=== PATIENT | male | born 1960 | race Caucasian/White ===

== ENCOUNTER 2021-05-16 14:45 | Emergency (ER) | payer SELFPAY ==
[2021-05-16] MEDS ORDERED: Metoprolol Tartrate 50 MG Tab PO ONE (15:38)
[2021-05-16] MEDS ORDERED: MVI, Adult with Vitamin K 10 ML, Thiamine 100 MG, Folic Acid 1 MG, Magnesium Sulfate 3 ... IV SCH ×5 (16:15)
[2021-05-16] MEDS ORDERED: MVI, Adult with Vitamin K 10 ML, Thiamine 100 MG, Folic Acid 1 MG, Magnesium Sulfate 3 ... IV ONE ×5 (17:00)
--- NOTE | 2021-05-16 17:27 | EDM.PDOCBH ---
ED HPI GENERAL MEDICAL PROBLEM - General Chief Complaint: Drug or Alcohol Abuse Stated Complaint: EMA LUNA Time Seen by Provider: 05/16/21 15:10 Source of Information: Reports: Patient, Family History Limitations: Reports: Intoxication - History of Present Illness INITIAL COMMENTS - FREE TEXT/NARRATIVE: 61-year-old male who has a long history of alcoholism, has not had treatment and the family finally convinced him to come in to consider detox. His only medical history is hypertension and peripheral neuropathy of his lower extremities. He has not been taking his medication, he ran out of his blood pressure medication several weeks ago and they would not fill it without him coming in to be seen. He looks thin, very intoxicated, he is hypertensive but not febrile. No nausea or vomiting. Associated Symptoms: Reports: Confusion (Confusion due to the intoxication). Denies: Malaise, Shortness of Breath - Related Data Allergies Allergy/AdvReac Type Severity Reaction Status Date / Time lisinopril Allergy Swelling Verified 05/16/21 15:07 Home Meds: Home Meds Aspirin 81 mg PO DAILY 05/16/21 [History] Clopidogrel [Plavix] 75 mg PO DAILY 05/16/21 [History] Clopidogrel [Plavix] 75 mg PO DAILY #30 tablet 05/16/21 [Rx] Losartan [Cozaar] 50 mg PO DAILY 05/16/21 [History] Losartan [Cozaar] 50 mg PO DAILY #30 tab 05/16/21 [Rx] atorvaSTATin [Lipitor] 80 mg PO DAILY 05/16/21 [History] guaiFENesin [Mucus Relief] 400 mg PO Q4H PRN 05/16/21 [History] Past Medical History Cardiovascular History: Reports: High Cholesterol, Hypertension, [place] Social & Family History - Tobacco Use Tobacco Use Status *Q: Heavy Tobacco User Years of Tobacco use: 35 Packs/Tins Daily: 1 - Recreational Drug Use Recreational Drug Use: No ED ROS GENERAL - Review of Systems Review Of Systems: See Below Constitutional: Reports: Malaise. Denies: Fever, Chills HEENT: Denies: Vision Change Respiratory: Denies: Shortness of Breath GI/Abdominal: Denies: Constipation, Diarrhea, Nausea, Vomiting : Reports: No Symptoms Musculoskeletal: Reports: No Symptoms Neurological: Reports: Paresthesia (Numbness of his lower extremities) ED EXAM, BEHAVIORAL HEALTH - Physical Exam Exam: See Below Exam Limited By: Intoxication General Appearance: Alert, No Apparent Distress, Other (Patient appears very intoxicated, staggering when he walks, very slurred speech) Eye Exam: Bilateral Eye: Normal Inspection (Well hydrated, no jaundice) Head: Atraumatic Neck: Supple, Non-Tender Respiratory/Chest: No Respiratory Distress, Lungs Clear Cardiovascular: Regular Rate, Rhythm. No: Tachycardia GI/Abdominal: Soft, Non-Tender Extremities: Normal Inspection. No: Pedal Edema Neurological: Alert, Disoriented to Time Skin Exam: Warm, Dry COURSE, BEHAVIORAL HEALTH COMP - Course Vital Signs: Last Vital Signs Temp 96.9 F 05/16/21 15:10 Pulse 72 05/16/21 16:48 Resp 20 05/16/21 16:48 BP 134/88 05/16/21 16:48 Pulse Ox 98 05/16/21 16:48 Orders, Labs, Meds: Laboratory Tests 05/16/21 05/16/21 05/16/21 Range/Units 15:14 15:26 15:26 WBC 4.4 L (4.5-11.0) K/uL RBC 4.08 L (4.30-5.90) M/uL Hgb 14.7 (12.0-15.0) g/dL Hct 41.9 (40.0-54.0) % MCV 103 H (80-98) fL MCH 36 H (27-31) pg MCHC 35 (32-36) % Plt Count 150 (150-400) K/uL Neut % (Auto) 33.7 L (36-66) % Lymph % (Auto) 54.1 H (24-44) % [place] % (Auto) 10.0 H (2-6) % Eos % (Auto) 1.1 L (2-4) % Baso % (Auto) 1.1 H (0-1) % Sodium (140-148) mmol/L Potassium (3.6-5.2) mmol/L Chloride (100-108) mmol/L Carbon Dioxide (21-32) mmol/L Anion Gap (5.0-14.0) mmol/L BUN (7-18) mg/dL Creatinine (0.8-1.3) mg/dL Est Cr Clr Drug Dosing mL/min Estimated GFR (MDRD) (>60) Glucose (74-106) mg/dL Calcium (8.5-10.1) mg/dL Urine Opiates Screen (NEGATIVE) Ur Oxycodone Screen (NEGATIVE) Urine Methadone Screen (NEGATIVE) Ur Propoxyphene Screen (NEGATIVE) Ur Barbiturates Screen (NEGATIVE) Ur Tricyclics Screen (NEGATIVE) Ur Phencyclidine Scrn (NEGATIVE) Ur Amphetamine Screen (NEGATIVE) U Methamphetamines Scrn (NEGATIVE) Urine MDMA Screen (NEGATIVE) U Benzodiazepines Scrn (NEGATIVE) U Cocaine Metab Screen (NEGATIVE) U Marijuana (THC) Screen (NEGATIVE) Ethyl Alcohol 489 mg/dL SARS CoV-2 RNA Rapid VICTORINO Negative 05/16/21 05/16/21 05/16/21 Range/Units 15:26 15:53 19:04 WBC (4.5-11.0) K/uL RBC (4.30-5.90) M/uL Hgb (12.0-15.0) g/dL Hct (40.0-54.0) % MCV (80-98) fL MCH (27-31) pg MCHC (32-36) % Plt Count (150-400) K/uL Neut % (Auto) (36-66) % Lymph % (Auto) (24-44) % [place] % (Auto) (2-6) % Eos % (Auto) (2-4) % Baso % (Auto) (0-1) % Sodium 140 (140-148) mmol/L Potassium 3.8 (3.6-5.2) mmol/L Chloride 102 (100-108) mmol/L Carbon Dioxide 25 (21-32) mmol/L Anion Gap 12.6 (5.0-14.0) mmol/L BUN 7 (7-18) mg/dL Creatinine 0.8 (0.8-1.3) mg/dL Est Cr Clr Drug Dosing 90.05 mL/min Estimated GFR (MDRD) > 60 (>60) Glucose 102 (74-106) mg/dL Calcium 8.6 (8.5-10.1) mg/dL Urine Opiates Screen Negative (NEGATIVE) Ur Oxycodone Screen Negative (NEGATIVE) Urine Methadone Screen Negative (NEGATIVE) Ur Propoxyphene Screen Negative (NEGATIVE) Ur Barbiturates Screen Negative (NEGATIVE) Ur Tricyclics Screen Negative (NEGATIVE) Ur Phencyclidine Scrn Negative (NEGATIVE) Ur Amphetamine Screen Negative (NEGATIVE) U Methamphetamines Scrn Negative (NEGATIVE) Urine MDMA Screen Negative (NEGATIVE) U Benzodiazepines Scrn Negative (NEGATIVE) U Cocaine Metab Screen Negative (NEGATIVE) U Marijuana (THC) Screen Negative (NEGATIVE) Ethyl Alcohol 369 mg/dL SARS CoV-2 RNA Rapid VICTORINO Medications Discontinued Medications Generic Name Dose Route Start Last Admin Trade Name Sadaf PRN Reason Stop Dose Admin Multivitamins/Minerals 10 ml/ 1,017.2 mls @ 1,000 mls/hr 05/16/21 17:00 05/16/21 16:47 Thiamine HCl 100 mg/ Folic IV 05/16/21 18:01 1,000 mls/hr Acid 1 mg/ Magnesium Sulfate 3 ASDIRECTED ONE Administration gm/ Sodium Chloride Metoprolol Tartrate 50 mg 05/16/21 15:38 05/16/21 15:47 Metoprolol Tartrate 50 Mg Tab PO 05/16/21 15:39 50 mg ONETIME ONE Administration Re-Assessment/Re-Exam: [facility] was contacted and they do have a bed available. CBC BMP and EtOH were obtained as well as a urine drug screen. Patient was given 50 mg of oral metoprolol, and prescriptions for his Plavix and losartan were called into a local pharmacy so his daughter could go get those filled so he can take them out to detox. Unfortunately his blood alcohol came back almost 0.5, so an IV was started and he was given 1 L of banana bag. Patient slowly improved while in the emergency room. BMP was entirely normal. EtOH will be redrawn at 7 PM, if below 0.4 he can be transferred to [facility]. Repeat EtOH was 0.369, family will transport patient to [facility] Departure - Departure Time of Disposition: 20:05 Disposition: DC/Tfer to Other 70 Clinical Impression: Alcohol abuse Alcohol intoxication Qualifiers: Complication of substance-induced condition: uncomplicated Qualified Code(s): F10.920 - Alcohol use, unspecified with intoxication, uncomplicated - Discharge Information Prescriptions: Losartan [Cozaar] 50 mg PO DAILY #30 tab Clopidogrel [Plavix] 75 mg PO DAILY #30 tablet Instructions: Alcohol Use Disorder Referrals: PCP,None [Primary Care Provider] - Forms: ED Department Discharge Care Plan Goals: Go to [facility] for admission for detox and possible extended treatment for alcohol abuse. Continue regular medications of losartan and Plavix daily. Sepsis Event Note (ED) - Evaluation Sepsis Screening Result: No Definite Risk
== END 2021-05-16 20:06 | disposition other institution (70) ==
LOC: JP.ED 14:45
DX: F10.120 Alcohol abuse with intoxication, uncomplicated (principal); E78.00 Pure hypercholesterolemia, unspecified; I10 Essential (primary) hypertension; I25.2 Old myocardial infarction; Y90.8 Blood alcohol level of 240 mg/100 ml or more; Z72.0 Tobacco use; Z88.8 Allergy status to other drugs, medicaments and biological substances; Z79.82 Long term (current) use of aspirin; Z79.02 Long term (current) use of antithrombotics/antiplatelets; Z79.899 Other long term (current) drug therapy; Z20.822 Contact with and (suspected) exposure to COVID-19
CPT/HCPCS: 36415; 80048; 80305; 80307; 85025; 87635; 96365; 99284; A9270; J3411; J3475; J7030; J3490; U0002

== ENCOUNTER 2022-01-26 22:05 | Emergency (ER) | payer SELFPAY ==
[2022-01-26] MEDS ORDERED: MVI, Adult with Vitamin K 10 ML, Thiamine 100 MG, Folic Acid 1 MG, Magnesium Sulfate 3 ... IV SCH ×5 (22:30)
[2022-01-26 22:59] LABS: ESTIMATED GFR 100 mL/min (>60)
== END 2022-01-27 00:33 | disposition home or self-care (01) ==
LOC: JP.ED 22:05
DX: F10.920 Alcohol use, unspecified with intoxication, uncomplicated (principal); E78.00 Pure hypercholesterolemia, unspecified; I10 Essential (primary) hypertension; I25.2 Old myocardial infarction; Z20.822 Contact with and (suspected) exposure to COVID-19; Z88.8 Allergy status to other drugs, medicaments and biological substances; Z79.82 Long term (current) use of aspirin; Z79.899 Other long term (current) drug therapy
CPT/HCPCS: 36415; 80053; 80305; 80307; 81001; 85025; 87635; 96365; 99283; J3411; J3475; J7030; J3490; U0002